=== PATIENT | male | born 1955 ===

== ENCOUNTER 2021-09-07 11:37 | Day surgery (SDC) | payer OTHER ==
[~2021-09-07] VITALS: Ht 180.3 cm; Wt 98.2 kg
[2021-09-07] MEDS ORDERED: PRINIVIL20 MG PO (13:01)
[2021-09-07] MEDS ORDERED: VIAGRA 25MG TAB25 MG PO (13:01)
[2021-09-07] MEDS ORDERED: LANTUS100 U/ML SQ (13:02)
[2021-09-07] MEDS ORDERED: SYNJARDY 5-5001 EACH PO (13:03)
[2021-09-07] MEDS ORDERED: TRULICITY0.75 MG/0. SQ (13:03)
[2021-09-07 13:27] VITALS: BP 144/95; PULSE 87; TEMP 98.5
[2021-09-07 14:13] VITALS: TEMP 98
[2021-09-07 14:20] VITALS: BP 115/68; PULSE 78
--- NOTE | 2021-09-07 14:20 | NUR ---
PATIENT RETURNS TO [facility] PER CART AFTER HAVING COLONOSCOPY. TRANSFERS FROM CART TO RECLINER WITH TWO PERSON ASSIST. IV FLUIDS INFUSING. TEMP 97.7 AND ROOM AIR SATS 97%. SPOUSE IN ROOM. DENIES PAIN OR NAUSEA.
[2021-09-07 14:35] VITALS: BP 115/73; PULSE 82
--- NOTE | 2021-09-07 14:35 | NUR ---
RESTING WITH EYES CLOSED AND OFFERS NO COMPLAINTS OF PAIN. SPOUSE REMAINS IN THE ROOM.
[2021-09-07 14:50] VITALS: BP 143/86; PULSE 70
--- NOTE | 2021-09-07 14:50 | NUR ---
EATING MUFFIN AND DRINKING WATER. CONTINUES TO DENY PAIN OR NAUSEA.
--- NOTE | 2021-09-07 15:03 | NUR ---
IV DISCONTINUED AND SITE IS FREE OF REDNESS OR SWELLING. PATIENT IS ABLE TO DRESS SELF.
--- NOTE | 2021-09-07 15:07 | NUR ---
PATIENT DISMISSED TO HOME DRIVEN BY SPOUSE AND TAKEN TO THE FRONT DOOR PER WHEELCHAIR AND ASSISTED INTO VEHICLE WITH INSTRUCTIONS IN HAND.
== END 2021-09-07 15:07 | disposition home or self-care (01) ==
LOC: SDCO 11:37
DX: Z12.11 Encounter for screening for malignant neoplasm of colon (principal); D12.0 Benign neoplasm of cecum; D12.2 Benign neoplasm of ascending colon; D17.5 Benign lipomatous neoplasm of intra-abdominal organs; Z86.010 Personal history of colon polyps
CPT/HCPCS: J2704; J7030